=== PATIENT | female | born 1955 | race Caucasian/White ===

== ENCOUNTER 2017-11-06 15:46 | Emergency (ER) | payer OTHER ==
[~2017-11-06] VITALS: Ht 157.5 cm; Wt 48.0 kg
[~2017-11-06 15:46] MED LIST: CYANOCOBALAMIN PO; ESZO3TAB39 PO; FOLIC ACID PO; MELA5TAB12 PO; PROG200C7 PO; THYR32.510 PO; ZOLP5TAB8 PO; citalopram PO; d3 PO
[2017-11-06] MEDS ORDERED: ketorolac trometh inj. 60 MG/2 ML VIAL IM ONE (16:20)
[2017-11-06] MEDS ORDERED: CYCL-1 PO (16:28)
[2017-11-06 16:29] VITALS: BP 134/86
== END 2017-11-06 16:30 | disposition home or self-care (01) ==
LOC: ER 15:46
DX: M54.5 Low back pain (principal); Z88.5 Allergy status to narcotic agent; Z79.899 Other long term (current) drug therapy
CPT/HCPCS: 96372; 99284; J1885; 99283